=== PATIENT | male | born 1995 | race Caucasian/White ===

== ENCOUNTER 2017-07-23 08:56 | Emergency (ER) | payer OTHER ==
[2017-07-23] MEDS ORDERED: Ibuprofen 800 MG TAB ONE (09:20)
[2017-07-23] MEDS ORDERED: HYDROcodone/Acetaminophen 5/325 mg Tablet ONE (09:20)
[2017-07-23] MEDS ORDERED: Cephalexin 500 MG CAP ONE (09:29)
--- NOTE | 2017-07-23 09:50 | RAD ---
TWO VIEWS OF THE LEFT MIDDLE FINGER: Date: 07-23-17 Comparison: None. History: Trauma, pain, injury. FINDINGS: There is soft tissue swelling dorsal to the third distal interphalangeal joint. There is an associate d obliquely oriented fracture involving the distal aspect of the third middle phalanx involving the t hird distal interphalangeal joint with no displacement or dislocation. IMPRESSION: Fracture involving the distal aspect of the third middle phalanx and probably involving the distal in terphalangeal joint. Underlying soft tissue swelling suggests the possibility of an open fracture. POS: [id number]
== END 2017-07-23 10:10 | disposition home or self-care (01) ==
LOC: MADERS 08:56
DX: S62.633A Displaced fracture of distal phalanx of left middle finger, initial encounter for closed fracture (principal); W22.8XXA Striking against or struck by other objects, initial encounter
CPT/HCPCS: 99283

== ENCOUNTER 2017-12-25 21:07 | Emergency (ER) | payer OTHER ==
[~2017-12-25 21:07] MED LIST: Sodium Chloride Irrig Solution 250 ML BOT ONE
--- NOTE | 2017-12-25 22:16 | RAD ---
THREE VIEWS LEFT HAND INDEX FINGER: 12/25/17 COMPARISON: None. HISTORY: Pain. Injury. Laceration. FINDINGS: No fracture. No cortical irregularity. No periosteal reaction. No radiopaque foreign body. IMPRESSION: No radiopaque foreign body or fracture. POS: [facility]
[2017-12-25] MEDS ORDERED: Lidocaine 1% 20 ML MDV ONE (23:07)
[2017-12-25] MEDS ORDERED: Triple Antibiotic Oint 1 GM Packet ONE (23:45)
== END 2017-12-26 00:05 | disposition home or self-care (01) ==
LOC: MADERS 21:07
DX: S61.211A Laceration without foreign body of left index finger without damage to nail, initial encounter (principal); W26.8XXA Contact with other sharp object(s), not elsewhere classified, initial encounter
CPT/HCPCS: 12001; J2001

== ENCOUNTER 2021-08-14 15:44 | Emergency (ER) | payer OTHER, BC ==
[2021-08-14] MEDS ORDERED: Dexamethasone 4 MG TAB ONE (16:20)
[2021-08-14] MEDS ORDERED: Ibuprofen 800 MG TAB ONE (16:20)
[2021-08-14] MEDS ORDERED: Acetaminophen 500 MG TAB ONE (16:20)
== END 2021-08-14 16:30 | disposition home or self-care (01) ==
LOC: MADERS 15:44
DX: M62.830 Muscle spasm of back (principal); M54.6 Pain in thoracic spine
CPT/HCPCS: 99283; J8540

== ENCOUNTER 2022-10-13 19:05 | Emergency (ER) | payer OTHER | END 2022-10-13 19:31 | disposition home or self-care (01) | LOC: MADERS 19:05 | DX: S09.90XA Unspecified injury of head, initial encounter (principal); S00.01XA Abrasion of scalp, initial encounter; W22.8XXA Striking against or struck by other objects, initial encounter; Y92.69 Other specified industrial and construction area as the place of occurrence of the external cause | CPT/HCPCS: 99283 ==

== ENCOUNTER 2024-05-16 16:18 | Emergency (ER) | payer SELFPAY ==
[2024-05-16] MEDS ORDERED: Sodium Chloride 0.9% 1,000 ML ONE (16:35)
[2024-05-16 17:00] LABS: #Basophils 0.1 thou/uL (0.0-0.2); #Eosinphils 0.1 thou/uL (0.0-0.7); #Lymphocytes 1.6 thou/uL (1.20-3.40); #Monocytes 1.4 thou/uL (0.11-0.59); %Basophils 0.8 % (0.0-1.0); %Eosinophils 0.7 % (0.0-10.0); %Lymphocytes 9.7 % (21.0-51.0); %Monocytes 8.4 % (0.0-10.0); %Neutrophils 80.4 % (42.0-75.0); Hemoglobin 15.1 g/dL (14.0-18.0); Mean Corpuscular HGB CONC 31.5 g/dL (32.0-36.0); Mean Corpuscular Hemoglobin 28.7 pg (27.0-31.0); Mean Corpuscular Volume 91.1 fl (78.0-98.0); Mean Platelet Volume 7.8 fL (7.4-10.4); Platelet Count 238 10x3/uL (130-400); RBC Distribution Width 13.8 % (11.5-14.5); Red Blood Cell (RBC) Count 5.27 mill/uL (4.70-6.10); White Blood Cell (WBC) Count 16.1 10x3/uL (4.8-10.8)
[2024-05-16 17:13] LABS: ALT (SGPT) 23 U/L (8-55); AST (SGOT) 21 U/L (5-34); Alkaline Phosphatase 95 U/L (40-110); Anion Gap 17 mmol/L (10-20); BUN (Urea Nitrogen) 9 mg/dL (8.9-20.6); Bilirubin, Total 0.7 mg/dL (0.2-1.2); Calc. Creatinine Clearance 0 mL/min (70-130); Calcium 9.3 mg/dL (7.8-10.44); Carbon Dioxide 20 mmol/L (22-29); Chloride 105 mmol/L (98-107); Estimated GFR 121; Globulin 2.9 g/dL (2.4-3.5); Glucose 113 mg/dL (70-105); Potassium 3.4 mmol/L (3.5-5.1); Protein, Total 6.9 g/dL (6.0-8.3); Sodium 139 mmol/L (136-145)
== END 2024-05-16 17:39 | disposition home or self-care (01) ==
LOC: MADERS 16:18
DX: G43.909 Migraine, unspecified, not intractable, without status migrainosus (principal); Z55.6 Problems related to health literacy
CPT/HCPCS: 36415; 80053; 85025; 93005; 96360; J7030